=== PATIENT | female | born 1990 ===

== ENCOUNTER 2017-12-04 01:27 | Emergency (ER) | payer OTHER ==
[2017-12-04 01:35] VITALS: BP 155/100
--- NOTE | 2017-12-04 01:40 | EDPHY ---
H & P Stated Complaint: RIGHT LOWER BACK PAIN AFTER LIFTINMG A PT AT WORK Time Seen by Provider: 12/04/17 01:40 HPI/ROS: HPI CHIEF COMPLAINT: Low back pain, back injury at work HISTORY OF PRESENT ILLNESS: 27-year-old female, she is otherwise healthy. She presents emergency room after states she was lifting a patient and then hurt her back. She has pain to the right low back musculoskeletal nature. No midline lumbar back pain. No sciatica. No pain that radiates down her leg. Or gluteus. Pain is localized paravertebral right-sided lower lumbar. Patient be on muscles. Mildly tender palpation. No numbness or tingling no focal weakness. This happened approximately 30-45 minutes ago at work while lifting heavy patient. Denies any saddle anesthesia or bowel bladder incontinence or retention. Denies trouble with her gait. Current level pain 6/10. Worse when she moves. Past Medical History: Denies medical history Past Surgical History: Denies surgical history Social History: Denies drugs alcohol tobacco. Works at [employer]. Family History: Noncontributory ROS REVIEW OF SYSTEMS: 10 Systems were reviewed and negative with the exception of the elements mentioned in the history of present illness. Exam Constitutional triage nursing summary reviewed, vital signs reviewed, awake/ alert. Eyes normal conjunctivae and sclera, EOMI, PERRLA. HENT normal inspection, atraumatic, moist mucus membranes, no epistaxis, neck supple/ no meningismus, no raccoon eyes. Respiratory clear to auscultation bilaterally, normal breath sounds, no respiratory distress, no wheezing. Cardiovascular rate normal, regular rhythm, no murmur, no edema, distal pulses normal. Gastrointestinal soft, non-tender, no rebound, no guarding, normal bowel sounds, no distension, no pulsatile mass. Genitourinary no CVA tenderness. Musculoskeletal back exam: No midline lumbar pain or step-offs or crepitus. Nontender palpation paravertebral lumbar region. Consistent with muscle spasm on exam. No leg weakness no saddle anesthesia. no midline vertebral tenderness, full range of motion, no calf swelling, no tenderness of extremities, no meningismus, good pulses, neurovascularly intact. Skin pink, warm, & dry, no rash, skin atraumatic. Neurologic awake, alert and oriented x 3, AAOx3, moves all 4 extremities equally, motor intact, sensory intact, CN II-XII intact, normal cerebellar, normal vision, normal speech. Psychiatric normal mood/affect. Heme/Lymph/Immune no lymphadenopathy. Differential Diagnosis: Includes but is not limited to in a particular order musculoskeletal back strain, muscle spasm, disc herniation, annular tear, nerve root compression. Medical Decision Making: Plan for this patient recommend anti-inflammatory pain medicine like ibuprofen, ice pack. She has no midline pain I do not feel she would benefit from any imaging at this time. Recommend rest, will provide work excuse. Recommend ice, anti-inflammatory pain medicine. Limited supply of [place] for pain control at home. She is driving home [place] Ibuprofen given here in emergency room. Return precautions discussed. Source: Patient - Personal History LMP (Females 10-55): 1-7 Days Ago Current Tetanus/Diphtheria Vaccine: Yes Current Tetanus Diphtheria and Acellular Pertussis (TDAP): Yes - Medical/Surgical History Hx Asthma: No Hx Chronic Respiratory Disease: No Hx Diabetes: No Hx Cardiac Disease: No Hx Renal Disease: No Hx Cirrhosis: No Hx Alcoholism: No Hx HIV/AIDS: No Hx Splenectomy or Spleen Trauma: No Other PMH: DENIES - Social History Smoking Status: Current every day smoker Constitutional: Initial Vital Signs Temperature (C) 37.4 C 12/04/17 01:32 Heart Rate 102 H 12/04/17 01:32 Respiratory Rate 18 12/04/17 01:32 Blood Pressure 155/100 H 12/04/17 01:32 O2 Sat (%) 100 12/04/17 01:32 O2 Delivery Mode Room Air Allergies/Adverse Reactions: No Known Allergies Allergy (Unverified 12/04/17 01:35) Home Medications: Medication Instructions Recorded Ibuprofen [Motrin (*)] 800 mg PO Q6-8PRN #10 tab 12/04/17 Departure - Departure Disposition: Home, Routine, Self-Care Clinical Impression: Low back strain Qualifiers: Encounter type: initial encounter Qualified Code(s): S39.012A - Strain of muscle, fascia and tendon of lower back, initial encounter Condition: Good Instructions: Low Back Strain (ED) Additional Instructions: 1. Recommend ice. 2. Recommend anti-inflammatory pain medicine. 3. Return emergency room if there is worsening symptoms questions or concerns 4. Follow up with her workman's Comp physician. Follow up with your employer. Referrals: NONE *PRIMARY CARE P,. [Primary Care Provider] - As per Instructions [facility],. [Clinic] - As per Instructions Stand Alone Forms: Work Excuse Prescriptions: Ibuprofen [Motrin (*)] 800 mg PO Q6-8PRN #10 tab
[2017-12-04] MEDS ORDERED: IBUPROFEN 800 MG TAB PO ONE (01:42)
[2017-12-04] MEDS ORDERED: HYDROCOD/APAP 5/325 PREPACK#6 BTL TAKEHOME ONE ×2 (01:46→01:47)
== END 2017-12-04 01:55 | disposition home or self-care (01) ==
DX: S39.012A Strain of muscle, fascia and tendon of lower back, initial encounter (principal); Y93.F2 Activity, caregiving, lifting; X50.0XXA Overexertion from strenuous movement or load, initial encounter; Y99.0 Civilian activity done for income or pay; F17.200 Nicotine dependence, unspecified, uncomplicated